=== PATIENT | male | born 1940 | race Caucasian/White ===

== ENCOUNTER 2022-06-18 10:13 | Emergency (ER) | payer MEDICARE, OTHER ==
[~2022-06-18] VITALS: Ht 170.2 cm; Wt 77.3 kg
[~2022-06-18 10:13] MED LIST: ALEN70TA60 PO; ASPI81TA44 PO; DABI150C PO; DIGO250T2 PO; FLO0.4C PO; HYDR-4383 PO; LEVE10002 PO; METO-467 PO; SIMV-42 PO
[2022-06-18 11:47] VITALS: BP 114/71
[2022-06-18] MEDS ORDERED: HYDR-3965 PO (12:54)
[2022-06-18] MEDS ORDERED: HYDROcodone/acetaminophen 5mg/325mg tablet PO ONE (13:40)
== END 2022-06-18 14:06 | disposition home or self-care (01) ==
LOC: MERGE 10:13 → ER 10:13
DX: S22.42XA Multiple fractures of ribs, left side, initial encounter for closed fracture (principal); S20.212A Contusion of left front wall of thorax, initial encounter; S30.810A Abrasion of lower back and pelvis, initial encounter; I48.91 Unspecified atrial fibrillation; Z95.0 Presence of cardiac pacemaker; Z88.8 Allergy status to other drugs, medicaments and biological substances; Z79.82 Long term (current) use of aspirin; Z79.899 Other long term (current) drug therapy; W22.8XXA Striking against or struck by other objects, initial encounter; Y93.89 Activity, other specified; Y92.89 Other specified places as the place of occurrence of the external cause; Y99.8 Other external cause status
CPT/HCPCS: 71250; 82948; 93005; 99284; 99285